=== PATIENT | male | born 1960 | race Caucasian/White ===

== ENCOUNTER → 2020-03-22 | Emergency (ER) | payer SELFPAY ==
[~2020-03-22] VITALS: Ht 172.7 cm; Wt 71.7 kg
[~2020-03-22] MED LIST: GELATIN SPONGE,ABSORBABLE 1 SPONGE SPONGE TP ONE
[2020-03-22 12:20] VITALS: BP 144/101
--- NOTE | 2020-03-22 12:37 | NUR ---
DR. RESENDIZ AT BEDSIDE FOR EVAL.
--- NOTE | 2020-03-22 12:47 | NUR ---
WOUND CLEANSED. WRAPPED WITH SURGICEL, XEROFORM AND DRY DRESSING.
--- NOTE | 2020-03-22 12:53 | NUR ---
UNABLE TO DEPART.
== END | disposition home or self-care (01) ==
LOC: ER 12:10
DX: S61.215D Laceration without foreign body of left ring finger without damage to nail, subsequent encounter (principal); X58.XXXD Exposure to other specified factors, subsequent encounter
CPT/HCPCS: 99283; L0172

== ENCOUNTER 2020-03-25 09:15 | Emergency (ER) | payer SELFPAY ==
[~2020-03-25] VITALS: Ht 172.7 cm; Wt 71.7 kg
[2020-03-25 09:20] VITALS: BP 144/78
--- NOTE | 2020-03-25 10:14 | NUR ---
YELLOW RING REMOVED FROM L RING FINGER BY UPPER AND BOTTOM LACER HAND.
[2020-03-25] MEDS ORDERED: BACITRACIN ZINC OINT PACKET 1 EA PACKET TP ONE (11:00)
== END 2020-03-25 10:44 | disposition home or self-care (01) ==
LOC: ER 09:15
DX: L98.499 Non-pressure chronic ulcer of skin of other sites with unspecified severity (principal); I10 Essential (primary) hypertension

== ENCOUNTER 2020-03-28 11:27 | Emergency (ER) | payer SELFPAY ==
[~2020-03-28] VITALS: Ht 172.7 cm; Wt 71.7 kg
[2020-03-28 11:33] VITALS: BP 131/101
--- NOTE | 2020-03-28 11:50 | NUR ---
AT BEDSIDE FOR EVAL.
[2020-03-28] MEDS ORDERED: GELATIN SPONGE,ABSORBABLE 1 SPONGE SPONGE TP ONE (11:53)
[2020-03-28] MEDS ORDERED: LIDOCAINE HCL/PF 1% 30 ML SDV ONE (12:00)
--- NOTE | 2020-03-28 12:08 | NUR ---
SUTURING DONE BY .
--- NOTE | 2020-03-28 12:16 | NUR ---
WOUND CLEANING AND DRESSING DONE BY [employer].
--- NOTE | 2020-03-28 12:47 | NUR ---
Patient discharged to home in stable condition. Written and verbal after care instructions given. Patient verbalizes understanding of instruction.
== END 2020-03-28 12:48 | disposition home or self-care (01) ==
LOC: ER 11:27
DX: S61.215A Laceration without foreign body of left ring finger without damage to nail, initial encounter (principal); I10 Essential (primary) hypertension; X58.XXXA Exposure to other specified factors, initial encounter; Y93.89 Activity, other specified; Y92.89 Other specified places as the place of occurrence of the external cause; Y99.8 Other external cause status
CPT/HCPCS: 12002; 99282; A6403 ×2; J3490